=== PATIENT | male | born 1950 | race Caucasian/White ===

== ENCOUNTER 2017-03-13 06:42 | Day surgery (SDC) | payer OTHER ==
[2017-03-13] MEDS ORDERED: Lactated Ringers 1,000 ML IV SCH (07:00)
[2017-03-13] MEDS ORDERED: Midazolam 1 MG/ML 2 ML SDV ONE (08:04)
[2017-03-13] MEDS ORDERED: fentaNYL 100 MCG/2 ML SDV ONE (08:04)
[2017-03-13] MEDS ORDERED: Propofol 200 MG/20 ML SDV ONE (08:04)
[2017-03-13 09:56] VITALS: BP 131/72
--- NOTE | 2017-03-13 14:14 | OR ---
DATE OF PROCEDURE: 03/13/2017 PREOPERATIVE DIAGNOSIS: Colon cancer screening. POSTOPERATIVE DIAGNOSIS: Diverticulosis, small colon polyp 15 cm from the anal verge. PROCEDURE: Colonoscopy to the cecum with biopsy resection of small colon polyp 15 cm from the anal verge. ANESTHESIA: IV anesthesia with monitored anesthesia care. INDICATIONS: This 66-year-old white male is referred for a colonoscopy for colon cancer screening. He says his last colonoscopic exam was more than ten years ago. I counseled him for the procedure including risks and alternatives, and he gave his informed consent to proceed. DESCRIPTION OF PROCEDURE: The patient was placed in the left lateral decubitus position. IV anesthesia was administered by the Anesthesia Service. Time-out was held. A rectal exam was performed, which was unremarkable. The flexible video Olympus colonoscope was introduced through his anus, up his rectum, and out his colon all way to the cecum. Once the cecum was reached, the scope was slowly withdrawn examining the mucosa throughout. We saw several left-sided diverticula. There was no bleeding or inflammation associated with them. At 15 cm from anal verge, we encountered a small polyp, which was removed with several bites of the biopsy forceps. The scope was brought back in the rectum where it was retroflexed. The distal rectum appeared unremarkable. The scope was straightened and removed. He tolerated the procedure well. Gibran Dow MD /[id number] MTDD
== END 2017-03-13 10:28 | disposition home or self-care (01) ==
LOC: JP.SDS 06:42
PROVIDERS: ATTEND Surgery
DX: Z12.11 Encounter for screening for malignant neoplasm of colon (principal); K63.5 Polyp of colon; K57.30 Diverticulosis of large intestine without perforation or abscess without bleeding; I10 Essential (primary) hypertension; F32.9 Major depressive disorder, single episode, unspecified
CPT/HCPCS: 45380; J2250; J2704; J3010; 88305

== ENCOUNTER 2017-12-02 13:05 | Emergency (ER) | payer MEDICARE, OTHER ==
[2017-12-02 13:31] VITALS: BP 198/87
--- NOTE | 2017-12-02 14:03 | CR ---
Chest 2V INDICATION: dyspnea COMPARISON: None FINDINGS: Two views. Heart size normal. Lungs are clear. No infiltrate or pleural effusion. No sig ns of pulmonary edema. IMPRESSION: Negative chest.
--- NOTE | 2017-12-02 14:10 | EDM.PDOC ---
ED HPI GENERAL MEDICAL PROBLEM - General Chief Complaint: Upper Extremity Injury/Pain Stated Complaint: FELL;HURT RIBS Time Seen by Provider: 12/02/17 13:40 Source of Information: Reports: Patient History Limitations: Reports: Intoxication - History of Present Illness INITIAL COMMENTS - FREE TEXT/NARRATIVE: 67-year-old male was up last night going to the bathroom, lost his balance and struck his left side of his anterior chest on the nightstand. Today he has intense pain on the anterior aspect of the left chest and wants it checked. He is afraid he may have broken a rib. He has pain with breathing but no shortness of breath, denies abdominal pain, back pain, head injury or extremity injury. 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 (Took some Aleve with mild improvement) Left Anterior Chest Pain Score (Numeric/FACES): 9 - Related Data Allergies Allergy/AdvReac Type Severity Reaction Status Date / Time No Known Allergies Allergy Verified 12/02/17 13:20 Home Meds: Home Meds Ascorbic Acid 500 mg PO DAILY 03/11/17 [History] Garlic [Garlic Oil] 1,000 mg PO QAM 03/11/17 [History] Ginkgo Biloba [place] Extract [Ginkgo] 60 mg PO DAILY 03/11/17 [History] Multivitamin with Minerals [Multiple Vitamin] 1 tab PO DAILY 03/11/17 [History] [place]-3/DHA/Epa/Fish Oil [Fish Oil 1,000 mg Softgel] 1 tab PO BID 03/11/17 [ History] [place] 80 mg PO DAILY 03/11/17 [History] Sildenafil Citrate [Sildenafil] 100 mg PO ASDIRECTED 03/11/17 [History] [place]'s Wort 300 mg PO TID 03/11/17 [History] Vitamin E 1,000 unit PO DAILY 03/11/17 [History] Lisinopril 10 mg PO DAILY 03/13/17 [History] Past Medical History Cardiovascular History: Reports: High Cholesterol, Hypertension Respiratory History: Reports: Other (See Below) Other Respiratory History: cough Gastrointestinal History: Reports: Bowel Obstruction, Chronic Constipation, GERD , Hemorrhoids Genitourinary History: Reports: BPH Musculoskeletal History: Reports: Arthritis, Fracture Other Musculoskeletal History: carpal tunnel, fractured ribs, ankles, nose, hands Neurological History: Reports: Migraines Other Neuro History: ocular migraine Psychiatric History: Reports: Anxiety, Depression, PTSD Other Psychiatric History: alcohol abuse Oncologic (Cancer) History: Reports: Basal Cell Carcinoma Dermatologic History: Reports: Other (See Below) Other Dermatologic History: basal cell skin cancer - Infectious Disease History Infectious Disease History: Reports: Chicken Pox, Measles, Mumps - Past Surgical History HEENT Surgical History: Reports: Tonsillectomy GI Surgical History: Reports: Appendectomy, Colonoscopy, Hernia, Inguinal Male Surgical History: Reports: Prostate Biopsy Dermatological Surgical History: Reports: Skin Biopsy, Other (See Below) Social & Family History - Tobacco Use Smoking Status *Q: Former Smoker Years of Tobacco use: 30 Packs/Tins Daily: 1 Used Tobacco, but Quit: Yes Month Tobacco Last Used: APRIL Second Hand Smoke Exposure: No - Caffeine Use Caffeine Use: Reports: Coffee, Soda - Alcohol Use Days Per Week of Alcohol Use: 7 Number of Drinks Per Day: 4 Total Drinks Per Week: 28 Date of Last Drink: 12/01/17 Time of Last Drink: 23:00 - Recreational Drug Use Recreational Drug Use: Yes Drug Use in Last 12 Months: Yes Recreational Drug Type: Reports: Marijuana/Hashish Recreational Drug Use Frequency: Socially Recreational Drug Last Use: 03/13/17 Review of Systems - Review of Systems Review Of Systems: See Below Constitutional: Denies: Fever Respiratory: Reports: Pleuritic Chest Pain. Denies: Shortness of Breath, Cough Cardiovascular: Reports: Chest Pain GI/Abdominal: Denies: Abdominal Pain, Diarrhea, Nausea, Vomiting Skin: Denies: Bruising Neurological: Reports: No Symptoms ED EXAM, GENERAL - Physical Exam Exam: See Below Exam Limited By: No Limitations General Appearance: Alert, No Apparent Distress (Not distressed but very uncomfortable with certain movements or breathing) Head: Atraumatic Neck: Non-Tender Respiratory/Chest: No Respiratory Distress, Lungs Clear, Other (Chest has very intense tenderness to palpation along the lateral left costochondral junction, no significant crepitus or deformity.) Cardiovascular: Regular Rate, Rhythm GI/Abdominal: Soft, Non-Tender Skin Exam: Warm, Dry, Other (No bruising, ecchymosis or abrasion over the sore area) Course - Vital Signs Last Recorded V/S: Last Vital Signs Temp 97.4 F 12/02/17 13:30 Pulse 84 12/02/17 13:30 Resp 20 12/02/17 13:30 BP 198/87 H 12/02/17 13:30 Pulse Ox 96 12/02/17 13:30 - Re-Assessments/Exams Free Text/Narrative Re-Assessment/Exam: 12/02/17 14:08 Two-view chest x-ray was normal. Explained to the patient that he likely has a sprain of the costochondral junction on the left chest wall. He was given 20 hydrocodone to use for extra pain control and will continue anti- inflammatories. [facility] if not improving satisfactorily and can return sooner if worsening such as shortness of breath or fever. Departure - Departure Time of Disposition: 14:32 Disposition: Home, Self-Care 01 Condition: Good Clinical Impression: Sprain of chondrocostal joint without injury to sternum Qualifiers: Encounter type: initial encounter Qualified Code(s): S23.41XA - Sprain of ribs , initial encounter - Discharge Information Instructions: Chest Wall Pain, [id number] Referrals: PCP,None [Primary Care Provider] - Forms: ED Department Discharge Care Plan Goals: Ice to sore areas may help for the next 2-3 days. Wrapping firmly with Neri wrap is while awake for 1-2 hours at a time may also be beneficial. Do not use Neri wraps while resting. Continue with Aleve for pain and add stronger pain medication if needed. Recheck next week if not improving satisfactorily as physical therapy may be necessary, or return sooner if worsening such as shortness of breath, fever, or worsening abdominal pain.
== END 2017-12-02 14:31 | disposition home or self-care (01) ==
LOC: JP.ED 13:05
DX: S23.41XA Sprain of ribs, initial encounter (principal); E78.00 Pure hypercholesterolemia, unspecified; I10 Essential (primary) hypertension; Z87.891 Personal history of nicotine dependence; Z79.899 Other long term (current) drug therapy; W22.8XXA Striking against or struck by other objects, initial encounter
CPT/HCPCS: 71046; 71046-26; 99283; 99284

== ENCOUNTER → 2024-10-12 | Day surgery (SDC) | payer MEDICARE, OTHER ==
[~2024-10-12] MED LIST: Propofol 200 MG/20 ML SDV ONE; fentaNYL 100 MCG/2 ML SDV ONE
[2024-10-12] MEDS: Lactated Ringers 1,000 ML IV SCH (08:24)
[2024-10-12 11:17] VITALS: BP 134/64; PULSE 65
== END ==
LOC: JP.SDS 07:37
PROVIDERS: ATTEND Surgery
DX: Z12.11 Encounter for screening for malignant neoplasm of colon (principal); D12.2 Benign neoplasm of ascending colon; K57.30 Diverticulosis of large intestine without perforation or abscess without bleeding; I10 Essential (primary) hypertension; E11.9 Type 2 diabetes mellitus without complications; Z86.0100 Personal history of colon polyps, unspecified
CPT/HCPCS: 00811; 45380; 45385; J2704; J3010; J7120; 88305